=== PATIENT | female | born 1960 | race Two or more races ===

== ENCOUNTER 2021-12-20 05:45 | Day surgery (SDC) | payer OTHER ==
[~2021-12-20] VITALS: Ht 154.9 cm; Wt 68.0 kg
[~2021-12-20 05:45] MED LIST: LIPITOR20 MG PO; METFOR PO; NORVASC5 MG PO; SYNTHROID88 MCG PO; VASOTEC20 M1 PO
== END 2021-12-20 16:00 | disposition home or self-care (01) ==
LOC: CIR.AMB 05:45
PROVIDERS: ATTEND Colon & Rectal Surgery
DX: D12.9 Benign neoplasm of anus and anal canal (principal); Z86.010 Personal history of colon polyps; K64.1 Second degree hemorrhoids; Z20.822 Contact with and (suspected) exposure to COVID-19; Z88.0 Allergy status to penicillin; Z88.8 Allergy status to other drugs, medicaments and biological substances; I10 Essential (primary) hypertension; E11.9 Type 2 diabetes mellitus without complications; K21.9 Gastro-esophageal reflux disease without esophagitis